=== PATIENT | male | born 1960 | race Caucasian/White ===

== ENCOUNTER 2018-05-18 15:42 | Emergency (ER) | payer OTHER ==
[~2018-05-18] VITALS: Ht 170.2 cm; Wt 60.3 kg
[2018-05-18 15:53] VITALS: BP 113/78
[2018-05-18] MEDS ORDERED: TETANUS-DIPTH-ACEL PERTUSSIS 0.5ML SYRG IM ONE (17:15)
== END 2018-05-18 17:59 | disposition home or self-care (01) ==
LOC: ER 15:47
DX: S61.210A Laceration without foreign body of right index finger without damage to nail, initial encounter (principal); W26.9XXA Contact with unspecified sharp object(s), initial encounter; Y93.89 Activity, other specified; Y99.9 Unspecified external cause status; Y92.69 Other specified industrial and construction area as the place of occurrence of the external cause
CPT/HCPCS: 12001; 73140; 90471; 90715